=== PATIENT | male | born 1985 | race Caucasian/White ===

== ENCOUNTER 2017-10-06 03:39 | Emergency (ER) | payer BC ==
[~2017-10-06] VITALS: Ht 172.7 cm; Wt 72.6 kg
[~2017-10-06 03:39] MED LIST: ALBU90I INH; ALBU90OI; ALBU90OI6 INH; CEPH500 PO; HYDACE5 PO; Norco 5-325 Ta1 EACH PO; Prednisone20 MG PO; RXCLIN PO; SULTRIDS PO
== END 2017-10-06 05:06 | disposition home or self-care (01) ==
LOC: ER 03:39
DX: M54.5 Low back pain (principal); J45.909 Unspecified asthma, uncomplicated; F17.200 Nicotine dependence, unspecified, uncomplicated; Z88.6 Allergy status to analgesic agent
CPT/HCPCS: 99283

== ENCOUNTER 2018-01-26 20:44 | Emergency (ER) | END 2018-01-26 22:10 | disposition home or self-care (01) ==

== ENCOUNTER 2018-02-06 17:37 | Emergency (ER) | payer BC ==
[~2018-02-06] VITALS: Ht 172.7 cm; Wt 72.6 kg
[~2018-02-06 17:37] MED LIST changes: +ALBU90OI6; -ALBU90OI6 INH
== END 2018-02-06 18:17 | disposition home or self-care (01) ==
LOC: ER 17:37
DX: S61.211D Laceration without foreign body of left index finger without damage to nail, subsequent encounter (principal); J45.909 Unspecified asthma, uncomplicated; F17.210 Nicotine dependence, cigarettes, uncomplicated
CPT/HCPCS: 99281

== ENCOUNTER 2024-03-06 23:38 | Emergency (ER) | payer OTHER ==
[~2024-03-06] VITALS: Ht 172.7 cm; Wt 68.0 kg
[~2024-03-06 23:38] MED LIST changes: -ALBU90OI6; +ALBU90OI6 INH
[2024-03-06 23:47] VITALS: BP 116/78
[2024-03-07] MEDS ORDERED: RX Prepack 6 Tabs Oxycodone 5mg UD ONE (02:10)
== END 2024-03-07 02:32 | disposition home or self-care (01) ==
LOC: ER 23:38
DX: S61.412A Laceration without foreign body of left hand, initial encounter (principal); F17.200 Nicotine dependence, unspecified, uncomplicated; J45.909 Unspecified asthma, uncomplicated; Y04.0XXA Assault by unarmed brawl or fight, initial encounter; Z88.6 Allergy status to analgesic agent
CPT/HCPCS: 12002; 73130; 99284-25; A9270